=== PATIENT | male | born 1980 | race Caucasian/White ===

== ENCOUNTER 2020-03-25 15:48 | Emergency (ER) | payer OTHER ==
[~2020-03-25] VITALS: Ht 182.9 cm; Wt 113.4 kg
[2020-03-25] MEDS ORDERED: methylPREDNISolone SOD SUCC 125 MG/2 ML VL IM ONE (17:15)
[2020-03-25 17:40] VITALS: BP 152/92
== END 2020-03-25 18:08 | disposition home or self-care (01) ==
LOC: ER 15:48
DX: J02.9 Acute pharyngitis, unspecified (principal)
CPT/HCPCS: 96372; 99283; J2930

== ENCOUNTER 2020-03-29 14:51 | Emergency (ER) | payer OTHER ==
[~2020-03-29] VITALS: Ht 182.9 cm; Wt 108.9 kg
[2020-03-29] MEDS ORDERED: cefTRIAXone SOD 1,000 MG VL IM ONE (16:45)
[2020-03-29 16:51] VITALS: BP 125/98
[2020-03-29] MEDS ORDERED: LIDOCAINE 1% HCL (LOCAL ANESTH.) INJ 20ML MDV ONE (16:57)
== END 2020-03-29 17:35 | disposition home or self-care (01) ==
LOC: ER 14:51
DX: J03.90 Acute tonsillitis, unspecified (principal)
CPT/HCPCS: 96372; 99283; J0696; J2001